=== PATIENT | female | born 1960 | race Caucasian/White ===

== ENCOUNTER 2016-11-14 09:34 | Day surgery (SDC) | payer OTHER, BC ==
[2016-11-12 14:32] VITALS: BMI 21.8
[~2016-11-14 09:34] MED LIST: LACTATED RINGERS 1,000 ML IV SCH
[2016-11-14] MEDS ORDERED: LIDOCAINE 1% 20 ML VIAL (10MG/ML) FOR IV START INTRADERMA ONE (10:47)
[2016-11-14 10:50] VITALS: RESP 18; TEMP 98
[2016-11-14] MEDS ORDERED: LIDOCAINE 1% INJ 10MG/ML (20 ML MDV) ONE (10:52)
[2016-11-14] MEDS ORDERED: PROPOFOL 10 MG/ML 20 ML VIAL IV ONE (10:52)
--- NOTE | 2016-11-14 10:56 | P.GSHP ---
History of Present Illness H&P Date: 11/14/16 Chief Complaint: Screen colonoscopy This is a 56-year-old female who presents today for screening colonoscopy. Patient denies a significant GI complaints. Past Medical History Additional Past Medical History / Comment(s): hx. genital warts 1988 History of Any Multi-Drug Resistant Organisms: MRSA Date of last positivie culture/infection: 2010 MDRO Source:: neck,armpit Past Surgical History: Back Surgery, Orthopedic Surgery Additional Past Surgical History / Comment(s): back surg. x 4-fusion w/last one , cervical fusion, arthroscopy knee, ORIF right ankle, CTS bilateral Past Anesthesia/Blood Transfusion Reactions: Postoperative Nausea & Vomiting ( PONV) Smoking Status: Former smoker - Past Family History Mother Family Medical History: No Reported History Medications and Allergies Home Medications Medication Instructions Recorded Confirmed Type Estrogens, Conjugated Cream 1 applicator VAGINAL DAILY 11/12/16 11/12/16 History [Premarin Cream] Multivit with Calcium,Iron,Min 1 each PO DAILY 11/12/16 11/12/16 History [Women's Multivitamin] Progesterone,Micronized 10 mg PO DAILY 11/12/16 11/12/16 History [Prometrium] valACYclovir [Valtrex] 500 mg PO DAILY 11/12/16 11/12/16 History Allergies Allergy/AdvReac Type Severity Reaction Status Date / Time No Known Allergies Allergy Verified 11/14/16 10:34 Surgical - Exam Vital Signs Temp Pulse Resp BP Pulse Ox 98.0 F 60 18 113/74 97 11/14/16 10:48 11/14/16 10:48 11/14/16 10:48 11/14/16 10:48 11/14/16 10:48 - General well developed, no distress - Eyes PERRL - ENT normal pinna - Neck no masses - Respiratory normal expansion - Cardiovascular Rhythm: regular - Abdomen Abdomen: soft, non tender Assessment and Plan Plan: We'll perform screening colonoscopy.
--- NOTE | 2016-11-14 11:08 | P.OP ---
Date of Procedure: 11/14/16 Preoperative Diagnosis: Screening colonoscopy Postoperative Diagnosis: Normal colon Procedure(s) Performed: Colonoscopy Implants: Anesthesia: MAC Surgeon: Lonnie Canela Pathology: none sent Condition: stable Disposition: PACU Indications for Procedure: Operative Findings: Description of Procedure: PROCEDURE: The patient was placed on the endoscopy table in the lateral position. Digital rectal examination was performed which revealed no abnormalities. Flexible colonoscope was then placed in the patient's anus and passed throughout the entire colon. The ileocecal valve was visualized. The cecum, ascending, transverse, descending and sigmoid colon were normal. The rectum was normal as well. There were no masses, polyps or diverticula noted in the entire colon. SUMMARY OF FINDINGS: Normal colonoscopy.
[2016-11-14 11:40] VITALS: BP 116/68; PULSE 54
== END 2016-11-14 11:53 | disposition home or self-care (01) ==
LOC: ORWHC2ENDO 09:34
PROVIDERS: ATTEND Surgery
DX: Z12.11 Encounter for screening for malignant neoplasm of colon (principal); A63.0 Anogenital (venereal) warts; Z87.891 Personal history of nicotine dependence; Z79.899 Other long term (current) drug therapy; Z86.14 Personal history of Methicillin resistant Staphylococcus aureus infection
CPT/HCPCS: J2001; J2704; G0121

== ENCOUNTER → 2021-04-24 | Outpatient (CLI) | payer OTHER | END | disposition home or self-care (01) | LOC: LABWHC1 12:18 | PROVIDERS: ATTEND Family Medicine | DX: U07.1 COVID-19 (principal) | CPT/HCPCS: U0003; C9803 ==